=== PATIENT | female | born 1995 | race Caucasian/White ===

== ENCOUNTER 2017-07-07 15:41 | Observation (INO) | payer OTHER ==
[~2017-07-07] VITALS: Ht 160 cm; Wt 63.5 kg
[~2017-07-07 15:41] MED LIST: MOTRIN800 MG PO; NUVARING1 ICR VAG; ZOFRAN ODT4 MG PO; [UNRECOGNIZED DRUG - OTHER] PO
[2017-07-07 16:35] LABS: ABSOLUTE BASOPHIL COUNT 0 /CUMM (0.0-0.2); ABSOLUTE EOSINOPHIL COUNT 0 /CUMM (0.0-0.7); ABSOLUTE GRANULOCYTE CT 8.6 /CUMM (1.4-6.5); ABSOLUTE LYMPH COUNT 0.2 /CUMM (1.2-3.4); ABSOLUTE MONOCYTE COUNT 0.2 /CUMM (0.10-0.60); BASOPHIL % 0.1 % (0.0-2.0); EOSINOPHIL % 0 % (0-5); GRANULOCYTE % 95.9 % (42.2-75.2); HEMATOCRIT 37.8 % (37-47); MEAN CORPUSCULAR HGB 30.5 PG (27.0-31.0); MEAN CORPUSCULAR HGB CONC 32.9 G/DL (33.0-37.0); MEAN CORPUSCULAR VOLUME 92.9 FL (81.0-99.0); MEAN PLATELET VOLUME 8.9 FL (7.4-10.4); PLATELET COUNT 233 /CUMM (130-400); RED BLOOD CELL CT 4.07 /CUMM (4.20-5.40)
--- NOTE | 2017-07-07 19:16 | ED GENERAL ADULT ---
History of Present Illness General Chief Complaint: Nausea, Vomiting, Diarrhea Stated Complaint: 20 WKS PREG +N/V Source: patient Exam Limitations: no limitations Vital Signs & Intake/Output Vital Signs & Intake/Output Vital Signs Date Time Temp Pulse Resp B/P B/P Pulse O2 O2 Flow FiO2 Mean Ox Delivery Rate 07/07 2213 99.7 07/07 2212 99.7 114 17 107/54 98 Room Air 07/07 212 100.1 07/07 204 100.1 112 18 99/54 99 07/07 1602 98.2 112 16 128/73 99 Room Air Room Air Allergies Coded Allergies: No Known Allergies (07/07/17) Reconcile Medications ETONOGESTREL/ETHINYL ESTRADIOL (Nuvaring Vaginal Ring) 0.12 MG -0.015 MG/24 HR VAG.RING 0 VAG MONTHLY control (Reported) Ibuprofen (Motrin) 800 MG TAB 1 TAB PO Q8H PRN PAIN Methylergonovine Maleate 0.2 MG TABLET 1 TAB PO Q6 MISCARRIAGE Ondansetron (Zofran Odt) 4 MG TAB.RAPDIS 1 TAB PO Q6H PRN NAUSEA Triage Note: PT TO TRIAGE WITH FEVERS, BUT HAS FELT HOLD AND COL. PT HAS LWOER ABD PAIN AND LOWER BACK PRESSURE. SHE IS 23 WEEK DUE 11/25, . DENIES BLEEDING OR VAGINAL DISCHARGE Triage Nurses Notes Reviewed? yes Onset: Abrupt Duration: hour(s): Timing: recent history : Yes Patient currently breastfeeds: No HPI: 07/07/17 22-year-old female presents to the emergency department with multiple episodes of vomiting. She says she currently 23 weeks . She denies any abdominal pain or vaginal bleeding. No fever at home. She is 1 para 0 Past History Travel History Traveled to [place] past 21 day No Medical History Any Pertinent Medical History? see below for history Neurological: NONE EENT: NONE Cardiovascular: NONE Respiratory: NONE Gastrointestinal: NONE Hepatic: NONE Renal: NONE Musculoskeletal: NONE Psychiatric: NONE Endocrine: NONE Blood Disorders: NONE Cancer(s): NONE SITE PLANNER/Reproductive: PCOS Surgical History Surgical History: non-contributory Psychosocial History What is your primary language Afghan Tobacco Use: Never used ETOH Use: denies use Illicit Drug Use: denies illicit drug use Family History Hx Contributory? No Review of Systems Review of Systems Constitutional: Denies: fever. EENTM: Denies: visual changes. Respiratory: Denies: short of breath. Cardiovascular: Denies: chest pain. GI: Denies: abdominal pain. Genitourinary: Reports: no symptoms. Musculoskeletal: Reports: muscle pain. Skin: Denies: rash. Neurological/Psychological: Reports: no symptoms. Hematologic/Endocrine: Reports: no symptoms. Immunologic/Allergic: Reports: no symptoms. Physical Exam Physical Exam General Appearance: alert, awake, anxious, mild distress Head: atraumatic, normal appearance Eyes: Bilateral: normal appearance, PERRL, EOMI. Ears, Nose, Throat: normal pharynx, normal ENT inspection Neck: normal inspection, supple Respiratory: chest non-tender, no respiratory distress Cardiovascular: regular rate/rhythm Peripheral Pulses: 4+ radial (R), 4+ radial (L) Gastrointestinal: non-tender Back: normal range of motion Extremities: no edema Neurologic/Psych: no motor/sensory deficits, awake, alert, oriented x 3 Skin: intact, normal color, warm/dry Core Measures ACS in differential dx? No CVA/TIA Diagnosis: No Sepsis Present: No Sepsis Focused Exam Completed? No Progress Differential Diagnoses I considered the following diagnoses in my evaluation of the patient: [ Infectious diarrhea, pyelonephritis, threatened , appendicitis,] Plan of Care: Orders Procedure Date/time Status RAPID VIRAL INFLUENZA A 07/07 2137 Complete Add-on Test (ER Only) 07/07 2101 Active CULTURE,URINE 07/07 1638 Active URINALYSIS 07/07 1543 Complete COMPREHENSIVE METABOLIC PANEL 07/07 1543 Complete CBC WITHOUT DIFFERENTIAL 07/07 1543 Complete Laboratory Tests 07/07/17 1638: Urine Color YEL, Urine Clarity HAZY H, Urine pH 6.0, Ur Specific [place] >= 1.030, Urine Protein TRACE H, Urine Ketones >=80, Urine Nitrite NEG, Urine Bilirubin NEG, Urine Urobilinogen 0.2, Ur Leukocyte Esterase NEG, Ur Microscopic SEDIMENT EXAMINED, Urine RBC 1-3, Urine WBC RARE, Ur Epithelial Cells MANY H, Urine Bacteria MOD H, Urine Mucus MANY H, Urine Hemoglobin NEG, Urine Glucose NEG 07/07/17 1612: Anion Gap 14, Estimated GFR > 60, BUN/Creatinine Ratio 26.0 H, Glucose 81, Calcium 9.3, Total Bilirubin 0.7, AST 33, ALT 47, Alkaline Phosphatase 57, Total Protein 7.0, Albumin 3.9, Globulin 3.1, Albumin/Globulin Ratio 1.3, CBC w Diff MAN DIFF ORDERED, RBC 4.07 L, MCV 92.9, MCH 30.5, MCHC 32.9 L, RDW 14.0, MPV 8.9, Gran % 95.9 H, Lymphocytes % 2.2 L, Monocytes % 1.8, Eosinophils % 0, Basophils % 0.1, Absolute Granulocytes 8.6 H, Segmented Neutrophils 86 H, Band Neutrophils 11 H, Absolute Lymphocytes 0.2 L, Lymphocytes 2 L, Monocytes 1 L , Absolute Monocytes 0.2, Absolute Eosinophils 0, Absolute Basophils 0, Platelet Estimate ADEQUATE, Normochromic RBCs VERIFIED, Poikilocytosis 1+, Anisocytosis 1 +, Ovalocytes FEW Microbiology 07/07 2143 NASOPHARYN: Influenza Virus A & B Rapid Smear - COMP 07/07 1638 URINE ROUT: Urine Culture - RECD Initial ED EKG: none Departure Departure Disposition: STILL A PATIENT Condition: Stable Clinical Impression Primary Impression: Vomiting Secondary Impressions: Referrals: Patient Has No Primary Care Dr (PCP/Family) Departure Forms: Customer Survey General Discharge Information Comments 07/07/17 10:16 PM The patient received 2 L of IV fluid. She did have a low-grade temperature of 100.0. She denied any abdominal pain but did have low back pain. heart rate was checked by the childbirth center nurses and was greater than 200. She had a normal white blood cell count but did have bandemia. Her abdomen was examined multiple times and was nontender. Urine culture was sent. I discussed the case with the on-call recycle coordinator Dr. Lacey who agreed with the plan of care. We will place her in observation in the childbirth center. They will repeat the CBC and do monitoring. Critical Care Note Critical Care Note Critical Care Time: non-applicable
[2017-07-07 22:13] VITALS: BP 107/54
== END 2017-07-08 12:00 ==
LOC: ERH 15:41 → GNO 22:23 → ERH 22:23 → GNO 23:00
PROVIDERS: Physician Assistant Medical
DX: O47.02 False labor before 37 completed weeks of gestation, second trimester (principal); Z3A.23 23 weeks gestation of pregnancy
CPT/HCPCS: 81001; 87086; 87804; 87804-59; 96360; 96361; 96374; G0378; J2405

== ENCOUNTER 2017-11-30 11:41 | Inpatient (IN) | payer OTHER ==
[~2017-11-30] VITALS: Ht 160 cm; Wt 78.5 kg
[2017-11-30 12:35] LABS: ABSOLUTE BASOPHIL COUNT 0 /CUMM (0.0-0.2); ABSOLUTE EOSINOPHIL COUNT 0.1 /CUMM (0.0-0.7); ABSOLUTE LYMPH COUNT 1.2 /CUMM (1.2-3.4); ABSOLUTE MONOCYTE COUNT 0.4 /CUMM (0.10-0.60); BASOPHIL % 0.3 % (0.0-2.0); EOSINOPHIL % 0.6 % (0-5); GRANULOCYTE % 82.6 % (42.2-75.2); MEAN CORPUSCULAR HGB 31.3 PG (27.0-31.0); MEAN CORPUSCULAR HGB CONC 34.1 G/DL (33.0-37.0); MEAN CORPUSCULAR VOLUME 91.7 FL (81.0-99.0); MEAN PLATELET VOLUME 10.7 FL (7.4-10.4); PLATELET COUNT 197 /CUMM (130-400); RBC DISTRIBUTION WIDTH 14.1 % (11.5-14.5); RED BLOOD CELL CT 3.82 /CUMM (4.20-5.40); WHITE BLOOD CELL COUNT 9.6 /CUMM (4.8-10.8)
[2017-11-30 12:47] VITALS: BP 122/77
--- NOTE | 2017-12-01 07:46 | History & Physical Pre-Op ---
General Information and HPI History of Present Illness: 22yo unknown lmp EDC 11/25/17 by early ultrasound presents to L&D with LOF. Amnisure positive. GBS negative. care complete and unremakable. Allergies/Medications Allergies: Coded Allergies: No Known Allergies (07/07/17) Home Med list ETONOGESTREL/ETHINYL ESTRADIOL (Nuvaring Vaginal Ring) 0.12 MG -0.015 MG/24 HR VAG.RING 0 VAG MONTHLY control (Reported) Ibuprofen (Motrin) 800 MG TAB 1 TAB PO Q8H PRN PAIN Methylergonovine Maleate 0.2 MG TABLET 1 TAB PO Q6 MISCARRIAGE Ondansetron (Zofran Odt) 4 MG TAB.RAPDIS 1 TAB PO Q6H PRN NAUSEA Past History Medical History Neurological: NONE EENT: NONE Cardiovascular: NONE Respiratory: NONE Gastrointestinal: NONE Hepatic: NONE Renal: NONE Musculoskeletal: NONE Psychiatric: NONE Endocrine: NONE Blood Disorders: NONE Cancer(s): NONE [employer]OR [employer]TICS/Reproductive: PCOS Surgical History Pertinent Surgical History: non-contributory Past Family/Social History Psychosocial History Smoking Status: Never Smoked Review of Systems Review of Systems Constitutional: Reports: no symptoms. EENTM: Reports: no symptoms. Cardiovascular: Reports: no symptoms. Respiratory: Reports: no symptoms. GI: Reports: no symptoms. Genitourinary: Reports: no symptoms. Musculoskeletal: Reports: no symptoms. Skin: Reports: no symptoms. Neurological/Psychological: Reports: no symptoms. Hematologic/Endocrine: Reports: no symptoms. Immunologic/Allergic: Reports: no symptoms. All Other Systems: Reviewed and Negative Exam & Diagnostic Data Last 24 Hrs of Vital Signs/I&O Vital Signs Date Time Temp Pulse Resp B/P B/P Pulse O2 O2 Flow FiO2 Mean Ox Delivery Rate 11/30 1247 122/77 Intake & Output 12/01 0800 12/01 0000 11/30 1600 Intake Total Output Total Balance Patient 173 lb Weight Physical Exam: HEENY: NCAT Chest: CTA CV: nl S1S2 Abd: gravid, cephalic, WFW7.5 Cx: LTCP Ext: no c/c/e Neuro: nonfocal Assessment/Plan Assessment/Plan: PROM poor [place] scorre Misoprostil cervical ripening As Ranked By This Provider Problem List: 1.
--- NOTE | 2017-12-01 08:42 | Labor & Delivery Summary ---
Delivery Summary Vaginal Delivery: Vaginal: vacuum assist Episiotomy/Lacerations: Episiotomy/Lacerations: epis Type: RML Repair: 3-0 layered Anesthesia: epi/local Placenta: Placenta: spontanteous, normal, 3 vessel Anesthesia: epi/local Cord PH Value: 7.23 Baby's Weight: pending Apgars - 1 Min: 8 Apgars - 5 Min: 8 Additional Comments: vacuum assist secondary to nonreassuring heart rate applied BERTIN bladder drained +2
[2017-12-02 08:16] LABS: ABSOLUTE BASOPHIL COUNT 0 /CUMM (0.0-0.2); ABSOLUTE EOSINOPHIL COUNT 0.2 /CUMM (0.0-0.7); ABSOLUTE GRANULOCYTE CT 13.3 /CUMM (1.4-6.5); ABSOLUTE LYMPH COUNT 1.7 /CUMM (1.2-3.4); ABSOLUTE MONOCYTE COUNT 0.6 /CUMM (0.10-0.60); BASOPHIL % 0.2 % (0.0-2.0); EOSINOPHIL % 1.1 % (0-5); MEAN CORPUSCULAR HGB 31.6 PG (27.0-31.0); MEAN CORPUSCULAR HGB CONC 33.8 G/DL (33.0-37.0); MEAN CORPUSCULAR VOLUME 93.6 FL (81.0-99.0); MEAN PLATELET VOLUME 10.6 FL (7.4-10.4); PLATELET COUNT 156 /CUMM (130-400); RBC DISTRIBUTION WIDTH 14.1 % (11.5-14.5); RED BLOOD CELL CT 3.31 /CUMM (4.20-5.40)
[2017-12-02 08:22] LABS: WHITE BLOOD CELL COUNT 15.8 /CUMM (4.8-10.8)
[2017-12-02 08:43] LABS: GRANULOCYTE % 84.1 % (42.2-75.2)
[2017-12-03] MEDS ORDERED: IBUPROFEN800 M1 PO (09:55)
[2017-12-03] MEDS ORDERED: DOCUSATE SODIU100 M3 PO (09:55)
== END 2017-12-03 11:48 | DRG 775 ==
LOC: CBCO 11:41 → GNO 12:36
PROVIDERS: Obstetrics & Gynecology
PROC: 10D07Z6 Extraction of Products of Conception, Vacuum, Via Natural or Artificial Opening (ICD-10-PCS; principal; 2017-12-01)
PROC: 0W8NXZZ Division of Female Perineum, External Approach (ICD-10-PCS; principal; 2017-12-01)
DX: O76 Abnormality in fetal heart rate and rhythm complicating labor and delivery (principal); O70.0 First degree perineal laceration during delivery; Z3A.40 40 weeks gestation of pregnancy; Z37.0 Single live birth
CPT/HCPCS: GNOP; GNOS; 36415; 81001; 84112; 87086; 87389; 88307; J0131; J1200; J1580; J2405; J7120